=== PATIENT | female | born 1970 | race Caucasian/White ===

== ENCOUNTER → 2019-11-09 | Outpatient (CLI) | payer BC ==
[2019-01-02 15:32] VITALS: BP 127/82
[~2019-11-09] MED LIST: HYDR-2761 PO; ORPH100T PO
--- NOTE | 2019-11-09 20:03 | KCIC ---
EXAM: LUMBAR SPINE MINIMUM 4 VIEWS. HISTORY: Low back pain, lifting injury injury COMPARISON: None. FINDINGS: Alignment is maintained. Vertebral body heights are maintained, and no fractures are identified. A Schmorl's node is noted at the superior endplate of L2. Degenerative disc disease is mild to moderate at L4-5. 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 IMPRESSION: 1. Degenerative disc disease is mild to moderate at L4-5. Electronically signed by: Chaparro Pollard MD (11/09/2019 8:00 PM) [facility]
== END | disposition home or self-care (01) ==
LOC: KCIC 15:02
PROVIDERS: ATTEND Family Medicine
DX: M47.817 Spondylosis without myelopathy or radiculopathy, lumbosacral region (principal); M51.36 Other intervertebral disc degeneration, lumbar region; M51.46 Schmorl's nodes, lumbar region
CPT/HCPCS: 72110

== ENCOUNTER 2021-05-15 15:15 | Emergency (ER) | payer BC ==
[~2021-05-15] VITALS: Ht 170.2 cm; Wt 72.2 kg
--- NOTE | 2021-05-15 18:11 | PHYS DOC ---
Past Medical History Past Medical History: No Pertinent History Past Surgical History: Hysterectomy, Other Additional Past Surgical Histo: LEFT ARM FX REPAIR Smoking Status: Former Smoker Additional Information: QUIT 1 WEEK AGO Alcohol Use: Occasionally Drug Use: None General Adult EDM: Chief Complaint: RIB PAIN HPI: HPI: Patient is a 50 year old female who presents with right rib pain. Patient states on [place] she drank too much when she slipped and fell and hit her side on the toilet seat. Patient states that she has had pain on her right side since. Patient states she is been taking ibuprofen at home with no relief. Patient denies any other injuries. Denies hitting her head or losing consciousness. Denies medical history. Review of Systems: Review of Systems: ROS At least 10 ROS systems have been reviewed and are negative except as documented in the HPI. General: Negative except as outlined in HPI above. Skin: Negative except as outlined in HPI above. HEENT: Negative except as outlined in HPI above. Neck: Negative except as outlined in HPI above. Respiratory: Negative except as outlined in HPI above.. Cardiovascular: Negative except as outlined in HPI above. Abdomen: Negative except as outlined in HPI above. : Negative except as outlined in HPI above. Back/MSK: Negative except as outlined in HPI above. Neuro: Negative except as outlined in HPI above. Psych: Negative except as outlined in HPI above. Heart Score: C/O Chest Pain: No Risk Factors: Risk Factors: DM, Current or recent (<one month) smoker, HTN, HLP, family history of CAD, obesity. Risk Scores: Score 0 - 3: 2.5% MACE over next 6 weeks - Discharge Home Score 4 - 6: 20.3% MACE over next 6 weeks - Admit for Clinical Observation Score 7 - 10: 72.7% MACE over next 6 weeks - Early Invasive Strategies Allergies: Allergies: Allergies Coded Allergies Type Severity Reaction Last Updated Verified latex Allergy Unknown 05/15/21 Yes Physical Exam: PE: Constitutional: Well developed, well nourished, no acute distress, non-toxic appearance. [] HENT: Normocephalic, atraumatic, bilateral external ears normal, oropharynx moist, no oral exudates, nose normal. [] Eyes: PERRLA, EOMI, conjunctiva normal, no discharge. [] Neck: Normal range of motion, no tenderness, supple, no stridor. [] Cardiovascular:Heart rate regular rhythm, no murmur [] Lungs & Thorax: Bilateral breath sounds clear to auscultation . Abdomen: Bowel sounds normal, soft, no tenderness, no masses, no pulsatile masses. [] Skin: Warm, dry, no erythema, no rash. [] Back: No tenderness, no CVA tenderness. [] Extremities: No tenderness, no cyanosis, no clubbing, ROM intact, no edema. [] Neurologic: Alert and oriented X 3, normal motor function, normal sensory function, no focal deficits noted. [] Psychologic: Affect normal, judgement normal, mood normal. [] Current Patient Data: Labs: Laboratory Tests Test 05/15/21 17:51 POC Urine HCG, Qualitative Hcg negative (Negative) Vital Signs: Vital Signs Date Time Temp Pulse Resp B/P (MAP) Pulse Ox O2 Delivery O2 Flow Rate FiO2 05/15/21 17:20 98.9 101 33 166/99 (121) 97 Room Air 98.9 EKG: EKG: [] Radiology/Procedures: Radiology/Procedures: []XR RIBS MIN 3 VIEWS RT W/PA CHEST History: Reason: fall / Spl. Instructions: / History: . Pain Technique: PA view the chest and additional views of the right ribs. Comparison: None. Findings: Acute right lateral seventh, eighth and ninth rib fractures. No consolidation or pleural effusion. No pneumothorax. Normal heart size. Impression: 1. Acute right lateral seventh, eighth and ninth rib fractures. Electronically signed by: Domo Claire DO (05/15/2021 6:30 PM) [facility] Course & Med Decision Making: Course & Med Decision Making Pertinent Labs and Imaging studies reviewed. (See chart for details) [] 50-year-old female who presents with right rib pain after a fall on [employer]. Work-up consisted of right rib and chest x-ray. Pain treated in the ER. Chest x-ray shows seventh, eighth, ninth rib fractures. Discussed results with patient. Patient educated on using incentive spirometer. Patient able to clear respiratory secretions on her own. Sending patient home with pain medication . Advised patient to also take ibuprofen. Discussed return precautions. Patient verbalized discharge understanding. Patient is hemodynamically stable upon disposition. Glenn Disclaimer: Glenn Disclaimer: This electronic medical record was generated, in whole or in part, using a voice recognition dictation system. Departure Departure Impression: Primary Impression: Fracture, rib Qualified Codes: S22.41XA - Multiple fractures of ribs, right side, initial encounter for closed fracture Disposition: HOME / SELF CARE / HOMELESS Condition: STABLE Referrals: Darcie SCHULZ MD (PCP) Patient Instructions: Rib Fracture, [id number] Additional Instructions: You were seen in the emergency room for rib fractures after a fall. Pain was treated in the ER. I am sending you home with pain medication along with an incentive spirometer to help prevent pneumonia. You may also take ibuprofen for breakthrough pain. Unfortunately it is going to take time for your ribs to heal. Return to the emergency room if you have worsening symptoms or concerns. EMERGENCY DEPARTMENT GENERAL DISCHARGE INSTRUCTIONS Thank you for coming to [facility] Emergency Department (ED) today and trusting us with you care. We trust that you had a positive experience in our Emergency Department. If you wish to speak to the department management, you may call the Director at [phone]. YOUR FOLLOW UP INSTRUCTIONS ARE FOLLOWS: 1. Do you have a private Doctor? If you do not have a private doctor, please ask for a resource list of physicians or clinics that may be able to assist you with follow up care. 2. The Emergency Physicain has interpreted your x-rays. The X-Ray specialist will also review them. If there is a change in the findings, you will be notified in 48 hours when at all possible. 3. A lab test or culture has been done, your results will be reviewed and you will be notified if you need a change in treatment. ADDITIONAL INSTRUCTIONS AND INFORMATION: 1. Your care today has been supervised by a physician who is specially trained in emergency care. Many problems require more than one evaluation for a complete diagnosis and treatment. We recommend that you schedule your follow up appointment as recommended to ensure complete treatment of you illness or injury. If you are unable to obtain follow up care and continue to have a problem, or if your condition worsens, we recommend that you return to the ED. 2. We are not able to safely determine your condition over the phone nor are we able to give sound medical advice over the phone. For these safety reasons, if you call for medical advice we will ask you to come to the ED for further evaluation. 3. If you have any questions regarding these discharge instructions please call the ED at [phone]. SAFETY INFORMATION: In the interest of safety, wellness, and injury prevention; we encourage you to wear your sealbelt, if you smoke; quite smoking, and we encourage family to use a protective helmet for bicycling and other sporting events that present an increased risk for head injury. IF YOUR SYMPTOMS WORSEN OR NEW SYMPTOMS DEVELOP, OR YOU HAVE CONCERNS ABOUT YOUR CONDITION; OR IF YOUR CONDITION WORSENS WHILE YOU ARE WAITING FOR YOUR FOLLOW UP APPOINTMENT; EITHER CONTACT YOUR PRIMARY CARE DOCTOR, THE PHYSICIAN WHOSE NAME AND NUMBER YOU WERE GIVEN, OR RETURN TO THE ED IMMEDIATELY. Scripts Amoxicillin/Potassium Clav (AUGMENTIN 875-125 TABLET) 1 Each Tablet 1 TAB PO BID for sinus infection for 7 Days, #14 TAB 0 Refills Prov: SHERI HALL APRN 05/15/21 Hydrocodone Bit/Acetaminophen (HYDROCODONE-APAP 5-325 ) 1 Tab Tablet 1 TAB PO PRN Q6HRS PRN for PAIN for 3 Days, #12 TAB 0 Refills Prov: SHERI HALL APRN 05/15/21 SHERI HALL APRN May 15, 2021 18:11
--- NOTE | 2021-05-15 18:33 | RAD ---
XR RIBS MIN 3 VIEWS RT W/PA CHEST History: Reason: fall / Spl. Instructions: / History: . Pain Technique: PA view the chest and additional views of the right ribs. Comparison: None. Findings: Acute right lateral seventh, eighth and ninth rib fractures. No consolidation or pleural effusion. No pneumothorax. Normal heart size. Impression: 1. Acute right lateral seventh, eighth and ninth rib fractures. Electronically signed by: Domo Claire DO (05/15/2021 6:30 PM) [facility]
[2021-05-15] MEDS: HYDROcodone/APAP 5/325MG 1 TAB TABLET PO ONE (18:44)
[2021-05-15] MEDS ORDERED: HYDR-2761 PO (18:55)
[2021-05-15] MEDS ORDERED: AMOX1TAB61 PO (19:08)
[2021-05-15 20:03] VITALS: BP 129/80
== END 2021-05-15 20:04 | disposition home or self-care (01) ==
LOC: ER 15:15
DX: S22.41XA Multiple fractures of ribs, right side, initial encounter for closed fracture (principal); Z87.891 Personal history of nicotine dependence; Z91.040 Latex allergy status; W01.198A Fall on same level from slipping, tripping and stumbling with subsequent striking against other object, initial encounter; Y93.89 Activity, other specified; Y92.89 Other specified places as the place of occurrence of the external cause; Y99.8 Other external cause status
CPT/HCPCS: 71101; 81025; 99285

== ENCOUNTER 2021-09-30 20:26 | Emergency (ER) | payer BC ==
[~2021-09-30] VITALS: Ht 170.2 cm; Wt 72.7 kg
[~2021-09-30 20:26] MED LIST changes: +AMOX1TAB61 PO
[2021-09-30] MEDS ORDERED: MORPHINE SULFATE 4 MG/ML INJ. IVP ONE (20:30)
--- NOTE | 2021-09-30 20:38 | PHYS DOC ---
Past Medical History Past Medical History: No Pertinent History (SAMANTHA BURK MD) Past Surgical History: Hysterectomy, Other Additional Past Surgical Histo: LEFT ARM FX REPAIR (SAMANTHA BURK MD) Smoking Status: Former Smoker Alcohol Use: Occasionally Drug Use: None (SAMANTHA BURK MD) General Adult EDM: Chief Complaint: ANKLE PROBLEM HPI: HPI: 50 yo F, no sig pmhx/pshx/allergies, pw R ankle deformity/trauma after 5 ft fall from ladder. Denies any other pain, no head trauma or LOC. Per EMS, placed in splint. (SAMANTHA BURK MD) Review of Systems: Review of Systems: Constitutional: Denies fever or chills. [] Eyes: Denies change in visual acuity. [] HENT: Denies nasal congestion or sore throat. [] Respiratory: Denies cough or shortness of breath. [] Cardiovascular: Denies chest pain or edema. [] GI: Denies abdominal pain, nausea, vomiting, bloody stools or diarrhea. [] : Denies dysuria. [] Musculoskeletal: Denies back pain . + R ankle pain Integument: Denies rash. [] Neurologic: Denies headache, focal weakness or sensory changes. [] Endocrine: Denies polyuria or polydipsia. [] Lymphatic: Denies swollen glands. [] Psychiatric: Denies depression or anxiety. [] (SAMANTHA BURK MD) Heart Score: C/O Chest Pain: No Risk Factors: Risk Factors: DM, Current or recent (<one month) smoker, HTN, HLP, family history of CAD, obesity. Risk Scores: Score 0 - 3: 2.5% MACE over next 6 weeks - Discharge Home Score 4 - 6: 20.3% MACE over next 6 weeks - Admit for Clinical Observation Score 7 - 10: 72.7% MACE over next 6 weeks - Early Invasive Strategies (SAMANTHA BURK MD) Current Medications: Current Medications Medications (Trade) Dose Ordered Sig/Brad Start Time Stop Time Status Last Admin Dose Admin Morphine Sulfate (Morphine Sulfate) 4 mg 1X ONCE 09/30/21 20:30 09/30/21 20:31 UNV (SAMANTHA BURK MD) Allergies: Allergies: Allergies Coded Allergies Type Severity Reaction Last Updated Verified latex Allergy Unknown 05/15/21 Yes (SAMANTHA BURK MD) Physical Exam: PE: Constitutional: Well developed, well nourished, no acute distress, non-toxic appearance. [] HENT: Normocephalic, atraumatic, bilateral external ears normal, oropharynx moist, no oral exudates, nose normal. [] Eyes: PERRLA, EOMI, conjunctiva normal, no discharge. [] Neck: Normal range of motion, no tenderness, supple, no stridor. [] Cardiovascular:Heart rate regular rhythm, no murmur [] Lungs & Thorax: Bilateral breath sounds clear to auscultation [] Abdomen: Bowel sounds normal, soft, no tenderness, no masses, no pulsatile masses. [] Skin: Warm, dry, no erythema, no rash. [] Back: No tenderness, no CVA tenderness. [] Extremities: + R ankle deformity & ttp and deviated to left, no open wound, no cyanosis, no clubbing, ROM intact, no edema. [] Neurologic: Alert and oriented X 3, normal motor function, normal sensory function, no focal deficits noted. [] Psychologic: Affect normal, judgement normal, mood normal. [] (SAMANTHA BURK MD) EKG: EKG: [] (SAMANTHA BURK MD) Radiology/Procedures: Radiology/Procedures: Reduction by me: Anesthesia: local anesthesia with 1% lidocaine Location: R ankle Technique: Gentle traction and manipulation Results: Voodoo of normal anatomic positioning Neurovascularly intact post procedure. Under my supervision a custom splint was placed Type of Splint: R short leg splint plus stirrup Splint Assessment: Neurovascularly intact post splint placement with good fit (SAMANTHA BURK MD) Course & Med Decision Making: Course & Med Decision Making Pertinent Labs and Imaging studies reviewed. (See chart for details) Additional Social History: PMD from non-affiliated facility. Patient Lives at home. Family History: Non-pertinent to today's complaint. Nursing Notes Reviewed Previous Medical Records requested via [facility] Web: Reviewed by me. EMERGENT LABS AND DIAGNOSTIC STUDIES: Results were reviewed and interpreted by me as below PROCEDURE: ANKLE RIGHT 2V, FOOT RIGHT 2V, TIBIA FIBULA RIGHT IMPRESSION: Severely comminuted fracture involving the distal fibular diaphysis/metaphysis and a obliquely oriented fracture to the distal fibula. PROCEDURE: PORTABLE CHEST 1V IMPRESSION: No acute cardiopulmonary process. PROCEDURE: ANKLE RIGHT 2V IMPRESSION: Mildly improved alignment from the prior study. EMERGENCY DEPARTMENT COURSE/ MEDICAL DECISION MAKING: The patient was placed on a site monitor, continuous pulse oximetry and was given supplemental oxygen. I examined the patient, evaluated and addressed patient's chief complaint. The patient was treated with fentanyl, morphine, intraarticular injection of lidocaine. Severely comminuted fracture of L ankle/distal tib/fib. Closed fracture. Neurovasc intact. s/p reduction and splinting. Stable for dc home with analgesics, crutches, and f/u with orthopedic surgery [facility]. Orthopedic surgeon Dr. Reece notified. The patient understands that todays Emergency Department evaluation does not represent a comprehensive medical workup, and it is impossible to diagnose all possible illnesses from a single Emergency Department visit. The patient verbalized understanding that it is absolutely necessary to have follow-up with regular primary care physician within 1-2 days for more detailed workup and continued exam. I explained the findings and plan to the patient, who expressed verbal understanding and agreed with plan for discharge and follow up. The patient was given after care instructions and welcomed to return to the ED for re-evaluation in 8-12 hours, especially for any new or worsening symptoms. Patient's blood pressure was elevated (>120/80) but appears stable without evidence of end organ damage, malignant hypertension, hypertensive emergency or urgency. The patient was counseled about the risks of hypertension and urged to pursue outpatient monitoring and therapy within a week with their primary care physician. The patient was stable at the time of discharge. DIAGNOSTIC IMPRESSION: 1. Closed R ankle comminuted fracture and dislocation DISPOSITION: Disposition: Discharge Home. Condition: Improved Follow-Up: PMD, orthopedic surgery Dr. Reece Prescriptions: morphine tablets, ibuprofen and tylenol Return to the Emergency Department for new or worsening symptoms. (SAMANTHA BURK MD) Dragon Disclaimer: Dragon Disclaimer: This electronic medical record was generated, in whole or in part, using a voice recognition dictation system. (SAMANTHA BURK MD) Departure Departure Impression: Primary Impression: Fracture of distal end of tibia with fibula Additional Impressions: Comminuted fracture Closed right ankle fracture Ankle dislocation Disposition: 01 HOME / SELF CARE / HOMELESS Condition: STABLE Referrals: Darcie SCHULZ MD (PCP) Scripts Acetaminophen (TYLENOL) 325 Mg Tablet 1-2 TAB PO QID, #60 TAB 2 Refills Prov: SAMANTHA BURK MD 09/30/21 Ibuprofen (IBUPROFEN) 600 Mg Tablet 600 MG PO PRN Q6HRS PRN for INFLAMMATION, #20 TAB Prov: SAMANTHA BURK MD 09/30/21 Morphine Sulfate (MORPHINE SULFATE) 15 Mg Tablet 1 TAB PO TID PRN for SEVERE PAIN 7-10 for 5 Days, #15 TAB Prov: RYAN SAUER APRN 09/30/21 SAMANTHA BURK MD September 30, 2021 20:38 RYAN SAUER APRN September 30, 2021 23:25
[2021-09-30 21:59] VITALS: BP 149/77
[2021-09-30] MEDS ORDERED: fentaNYL PF VIAL 100 MCG/2 ML VIAL IVP ONE (22:00)
[2021-09-30] MEDS ORDERED: ACET325T9 PO ×2 (22:09→23:47)
[2021-09-30] MEDS ORDERED: MORP15TA PO ×3 (22:09→23:45)
[2021-09-30] MEDS ORDERED: IBUP-1007 PO ×2 (22:09→23:47)
--- NOTE | 2021-10-01 00:17 | RAD ---
Exam: Right foot 2 views. Right ankle 2 views. Right tib-fib 2 views INDICATION: Trauma, ankle deformity TECHNIQUE: Frontal and lateral views of the right tib-fib, right ankle and right foot Comparisons: None FINDINGS: There is a severely comminuted fracture involving the distal fibular diaphysis/metaphysis with intra- articular extension. Additionally there is a transverse fracture through the distal fibular diaphysis . There is diffuse surrounding soft tissue swelling.. No acute or healed fractures. Joint spaces are well-maintained. IMPRESSION: Severely comminuted fracture involving the distal fibular diaphysis/metaphysis and a obliquely orient ed fracture to the distal fibula. Electronically signed by: Marimar Brown MD (10/01/2021 12:14 AM) [facility]
--- NOTE | 2021-10-01 00:18 | RAD ---
Exam: Chest one view INDICATION: Preop, pain TECHNIQUE: Frontal view which Comparisons: 05/15/2021 FINDINGS: The cardiomediastinal silhouette and pulmonary vessels are within normal limits. The lung and pleural spaces are clear. IMPRESSION: No acute cardiopulmonary process. Electronically signed by: Marimar Brown MD (10/01/2021 12:15 AM) [facility]
--- NOTE | 2021-10-01 00:21 | RAD ---
Exam: Right ankle 2 views INDICATION: Post reduction, pain TECHNIQUE: Frontal and lateral views the right ankle Comparisons: None FINDINGS: Redemonstration of comminuted fractures of the distal tibia and fibula with mildly improved alignment when compared to the prior study. No new fractures are seen. IMPRESSION: Mildly improved alignment from the prior study. Electronically signed by: Marimar Brown MD (10/01/2021 12:19 AM) [facility]
== END 2021-09-30 22:25 | disposition home or self-care (01) ==
LOC: ER 20:26
DX: S82.491A Other fracture of shaft of right fibula, initial encounter for closed fracture (principal); S82.891A Other fracture of right lower leg, initial encounter for closed fracture; Z87.891 Personal history of nicotine dependence; Z91.040 Latex allergy status; W11.XXXA Fall on and from ladder, initial encounter; Y93.89 Activity, other specified; Y92.89 Other specified places as the place of occurrence of the external cause; Y99.8 Other external cause status
CPT/HCPCS: 71045; 73590; 73600; 73620; 96374; 96375; 99285; J2270; J3010